=== PATIENT | male | born 1970 | race Caucasian/White ===

== ENCOUNTER 2017-12-23 01:20 | Emergency (ER) | payer OTHER ==
[~2017-12-23] VITALS: Ht 165.1 cm; Wt 79.4 kg
[2017-12-23 01:29] VITALS: BP 130/78
--- NOTE | 2017-12-23 01:52 | NUR ---
PT TAKEN TO ROOM #4.
--- NOTE | 2017-12-23 02:00 | NUR ---
DR. SMILEY IS AT THE BEDSIDE EVALUATING THE PT.
[2017-12-23] MEDS ORDERED: ONDANSETRON 4 MG TAB.RAPDIS ONE (02:01)
[2017-12-23] MEDS ORDERED: oxyCODONE/APAP (5/325 MG) 1 UDTAB TABLET ONE (02:01)
--- NOTE | 2017-12-23 02:05 | NUR ---
PT REFUSED MEDICATION AND LEFT WITHOUT DISCHARGE. DR. SMILEY WAS NOTIFIED.
[2017-12-23] MEDS ORDERED: ONDANSETRON 4 MG TAB.RAPDIS SL ONE (02:30)
[2017-12-23] MEDS ORDERED: oxyCODONE/APAP (5/325 MG) 1 UDTAB TABLET PO ONE (02:30)
== END 2017-12-23 02:07 | disposition home or self-care (01) ==
LOC: ER 01:20
DX: K08.89 Other specified disorders of teeth and supporting structures (principal)
CPT/HCPCS: 99284; A4606; Q0162; Z7610

== ENCOUNTER 2019-06-21 20:19 | Emergency (ER) | payer OTHER ==
[~2019-06-21] VITALS: Ht 162.6 cm; Wt 68.0 kg
[2019-06-21 20:20] VITALS: BP 135/94
[2019-06-21] MEDS ORDERED: KETOROLAC TROMETHAMINE INJ 60 MG/2 ML VIAL IM ONE (22:00)
[2019-06-21] MEDS ORDERED: CYCLOBENZAPRINE 10 MG TABLET PO ONE (22:00)
[2019-06-21] MEDS ORDERED: CYCLOBENZAPRINE 10 MG TABLET ONE (22:04)
[2019-06-21] MEDS ORDERED: KETOROLAC TROMETHAMINE INJ 30 MG/ML VIAL ONE (22:04)
[2019-06-21] MEDS ORDERED: ACETAMINOPHEN ES 500 MG TABLET ONE (22:19)
[2019-06-21] MEDS ORDERED: ACETAMINOPHEN 325 MG TABLET PO ONE (22:30)
--- NOTE | 2019-06-21 23:42 | NUR ---
Patient discharged to home in stable condition. Written and verbal after care instructions given. Patient verbalizes understanding of instruction AND RX. PT WAS INSTRUCTED NOT TO DRIVE WHILE TAKING FLEXERIL. PT CALLED AN UBER TO TAKE HIM HOME. PT AMBULATED OUT WITH A LIMP.
== END 2019-06-21 23:44 | disposition home or self-care (01) ==
LOC: ER 20:22
DX: M54.5 Low back pain (principal); F17.200 Nicotine dependence, unspecified, uncomplicated; V49.49XA Driver injured in collision with other motor vehicles in traffic accident, initial encounter; Y93.89 Activity, other specified; Y92.413 State road as the place of occurrence of the external cause; Y99.8 Other external cause status
CPT/HCPCS: 72110-TC; J1885

== ENCOUNTER 2024-05-07 15:25 | Emergency (ER) | payer OTHER ==
[~2024-05-07] VITALS: Ht 165.1 cm; Wt 75.3 kg
[2024-05-07 15:57] LABS: BASOPHILS % (AUTO) 0.2 % (0.0-2.0); EOSINOPHILS # (AUTO) 0.2 K/uL (0.0-0.7); EOSINOPHILS % (AUTO) 1.8 % (0.0-6.0); HEMATOCRIT 45 % (39-51); HEMOGLOBIN 15.4 g/dL (13.5-17.5); LYMPHOCYTES # (AUTO) 1.8 K/uL (0.8-4.8); LYMPHOCYTES % (AUTO) 20.2 % (20.0-44.0); MEAN CORPUSCULAR HEMOGLOBIN 31 PG (26.0-33.0); MEAN CORPUSCULAR HGB CONC 35 g/dl (31.0-36.0); MEAN CORPUSCULAR VOLUME 90 fL (80-96); MONOCYTES # (AUTO) 0.6 K/uL (0.1-1.30); MONOCYTES % (AUTO) 6.9 % (2.0-12.0); NEUTROPHILS # (AUTO) 6.3 K/uL (1.8-8.9); NEUTROPHILS % (AUTO) 70.9 % (43.0-81.0); PLATELET COUNT (AUTO) 259 K/uL (150-450); RED BLOOD CELL COUNT(AUTO) 4.95 MIL/uL (4.5-6.0); RED CELL DISTRIBUTION WIDTH 13.6 % (11.5-15.0); WHITE BLOOD COUNT (AUTO) 8.9 K/uL (4.3-11.0)
[2024-05-07 16:13] LABS: CALCIUM, SERUM 9.1 mg/dL (8.5-10.1); CARBON DIOXIDE 31 mmol/L (21-32); CHLORIDE 101 mmol/L (98-107); CREATININE 0.8 mg/dL (0.6-1.3); GLUCOSE 126 mg/dL (74-106); POTASSIUM 4.8 mmol/L (3.5-5.1); SODIUM SERUM 137 mmol/L (136-145); UREA NITROGEN, BLOOD 11 mg/dL (7-18)
[2024-05-07 16:25] LABS: ALANINE AMINOTRANSFERASE 77 U/L (12-78); ALBUMIN 3.6 g/dL (3.4-5.0); ALKALINE PHOSPHATASE 139 U/L (46-116); ASPARTATE AMINOTRANSFERASE 41 U/L (15-37); BILIRUBIN,DIRECT 0.1 mg/dL (0.0-0.2); BILIRUBIN,TOTAL 0.2 mg/dL (0.2-1.0); NT-PRO BNP 39 pg/mL (0-125); TOTAL PROTEIN, SERUM 7.6 g/dL (6.4-8.2)
[2024-05-07 18:26] VITALS: BP 148/96; TEMP 98.6; O2SAT 97
== END 2024-05-07 18:27 | disposition home or self-care (01) ==
LOC: ER 15:34
DX: R07.89 Other chest pain (principal); F17.200 Nicotine dependence, unspecified, uncomplicated
CPT/HCPCS: 36415; 71045-TC; 80048-TC; 80076-TC; 83880; 84484-TC; 85025-TC